=== PATIENT | female | born 1960 | race Caucasian/White ===

== ENCOUNTER → 2022-07-30 | Outpatient (CLI) | payer BC ==
[~2022-07-30] MED LIST: CIPRO500 MG PO; CLONIDINE HCL0.2 MG PO; NIFEDIPINE ER30 M1 PO; NORCO 7.5-3251 EACH PO; OMEPRAZOLE20 M1 PO; ZOFRAN ODT4 MG PO
== END ==
LOC: MAMMO 13:31
PROVIDERS: ATTEND Family Medicine
DX: Z12.31 Encounter for screening mammogram for malignant neoplasm of breast (principal); Z13.820 Encounter for screening for osteoporosis
CPT/HCPCS: 77067; 77080

== ENCOUNTER 2022-08-26 14:42 | Inpatient (IN) | payer BC ==
[~2022-08-26] VITALS: Ht 172.7 cm; Wt 82.6 kg
[2022-08-26] MEDS ORDERED: ONDANSETRON HCL INJ 2MG/ML 2ML 2 MG/ML VIAL IV STA (15:08)
[2022-08-26] MEDS ORDERED: Morphine 4mg INJECTION 4 MG/ML INJ IV ONE (15:15)
[2022-08-26] MEDS ORDERED: SODIUM CHLORIDE 0.9% 1000ML 1,000 ML IV SCH (15:15)
[2022-08-26 15:24] LABS: BASOPHILS # (AUTO) 0.1 (0.0-0.1); BASOPHILS % 0.4 % (0.0-1.0); EOSINOPHILS # (AUTO) 0.1 (0.0-0.4); EOSINOPHILS % 0.8 % (0.0-6.0); HEMATOCRIT 48.1 % (34.2-44.1); HEMOGLOBIN 15.9 g/dL (12.0-16.0); LYMPHOCYTES # (AUTO) 3.3 (1.0-3.2); LYMPHOCYTES % 27.2 % (18.0-39.1); MEAN CORPUSCULAR HEMOGLOBIN 29.9 pg (28-32); MEAN CORPUSCULAR HGB CONC 33.1 g/dL (31-35); MEAN CORPUSCULAR VOLUME 90.4 fL (81-99); MONOCYTES # (AUTO) 0.6 (0.2-0.8); MONOCYTES % 4.6 % (4.4-11.3); NEUTROPHILS % 66.7 % (38.7-80.0); PLATELET COUNT 279 x10e3/uL (140-360); RED BLOOD COUNT 5.32 x10e6/uL (3.6-5.1); RED CELL DISTRIBUTION WIDTH 12.8 % (11.7-14.4)
[2022-08-26 15:36] LABS: CLARITY,URINE SL CLOUDY (CLEAR); COLOR,URINE STRAW (YELLOW)
[2022-08-26 15:37] LABS: KETONES,URINE 1+ (NEGATIVE); LEUKOCYTE ESTERASE ,URINE MODERATE (NEGATIVE); NITRITE,URINE NEGATIVE (NEGATIVE); PROTEIN,URINE DIPSTICK NEGATIVE (NEGATIVE); URINE UROBILINOGEN 0.2 mg/dL (0.2 - 1)
[2022-08-26 15:47] LABS: ALBUMIN 4.5 g/dL (3.5-5.0); ALBUMIN/GLOBULIN RATIO 1.4 (0.8-2.0); ANION GAP 20.2 mmol/L (8-16); CALCIUM 10.1 mg/dL (8.4-10.2); CREATININE, SERUM 0.77 mg/dL (0.57-1.11); POTASSIUM 3.2 mmol/L (3.5-5.1)
[2022-08-26 15:53] LABS: BACTERIA,URINE MODERATE /HPF; EPITHELIAL CELLS,URINE MODERATE /LPF
[2022-08-26] MEDS ORDERED: IOPAMIDOL 370 MG/ML 100 ML INFUS..BTL INJ ONE (16:05)
[2022-08-26] MEDS ORDERED: SODIUM CHLORIDE FLUSH 10 ML SYR INJ PRN (17:45)
[2022-08-26] MEDS ORDERED: Morphine 4mg INJECTION 4 MG/ML INJ IV PRN (17:45)
[2022-08-26] MEDS: SODIUM CHLORIDE 0.9% 1000ML 1,000 ML IV SCH (17:59)
[2022-08-26] MEDS ORDERED: HYDRALAZINE HCL 20 MG/ML VIAL IV PRN (19:00)
[2022-08-26] MEDS ORDERED: ACETAMINOPHEN 1000 MG/100 ML IV PRN (19:00)
[2022-08-27] VITALS (8 sets, daily range): BP systolic 139–156; BP diastolic 61–89
[2022-08-27] MEDS ORDERED: ZETIA10 MG PO (01:27)
[2022-08-27] MEDS ORDERED: HYZAAR 100-12.1 EACH PO (01:27)
[2022-08-27] MEDS ORDERED: ATORVASTATIN CA20 MG PO (01:28)
[2022-08-27] MEDS ORDERED: CLONIDINE HCL0.1 MG PO (01:28)
[2022-08-27] MEDS ORDERED: ASPIRIN EC81 MG PO (01:29)
[2022-08-27] MEDS: SODIUM CHLORIDE 0.9% 1000ML 1,000 ML IV SCH ×3 (01:45→17:10)
[2022-08-27 06:53] LABS: BASOPHILS % 0.3 % (0.0-1.0); EOSINOPHILS # (AUTO) 0.2 (0.0-0.4); HEMATOCRIT 40.9 % (34.2-44.1); HEMOGLOBIN 13.2 g/dL (12.0-16.0); LYMPHOCYTES % 26.9 % (18.0-39.1); MEAN CORPUSCULAR HEMOGLOBIN 29.9 pg (28-32); MEAN CORPUSCULAR HGB CONC 32.3 g/dL (31-35); MEAN CORPUSCULAR VOLUME 92.5 fL (81-99); MONOCYTES # (AUTO) 0.5 (0.2-0.8); MONOCYTES % 6.3 % (4.4-11.3); NEUTROPHILS # (AUTO) 4.9 (2.1-6.9); NEUTROPHILS % 64.4 % (38.7-80.0); PLATELET COUNT 179 x10e3/uL (140-360); RED BLOOD COUNT 4.42 x10e6/uL (3.6-5.1); RED CELL DISTRIBUTION WIDTH 12.8 % (11.7-14.4)
[2022-08-27 07:16] LABS: ANION GAP 10.4 mmol/L (8-16); CALCIUM 8.6 mg/dL (8.4-10.2); CREATININE, SERUM 0.62 mg/dL (0.57-1.11); POTASSIUM 3.4 mmol/L (3.5-5.1)
[2022-08-28] VITALS (10 sets, daily range): BP systolic 135–179; BP diastolic 62–87
[2022-08-28] MEDS: SODIUM CHLORIDE 0.9% 1000ML 1,000 ML IV SCH ×2 (01:26→08:00)
[2022-08-28] MEDS: ONDANSETRON HCL INJ 2MG/ML 2ML 2 MG/ML VIAL IV PRN ×2 (11:34→21:57)
[2022-08-28] MEDS ORDERED: MIDAZOLAM HCL 2 MG/2 ML VIAL ONE (12:25)
[2022-08-28] MEDS ORDERED: FENTANYL CITRATE/PF 100MCG/2 ML INJ ONE (12:25)
[2022-08-28] MEDS ORDERED: DEXAMETHASONE SOD PHOS INJ 4 MG/ML SDV ONE (13:25)
[2022-08-28] MEDS ORDERED: KETOROLAC TROMETHAMINE 30 MG/ML VIAL ONE (13:25)
[2022-08-28] MEDS ORDERED: ONDANSETRON HCL INJ 2MG/ML 2ML 2 MG/ML VIAL ONE ×2 (13:25→18:28)
[2022-08-28] MEDS ORDERED: SEVOFLURANE INHAL SOLN 250 ML PEN BTL ONE (13:25)
[2022-08-28] MEDS ORDERED: POVIDONE IODINE 0.05% 0.05 % ML PO ONE (13:25)
[2022-08-28] MEDS ORDERED: ROCURONIUM BROMIDE 10 MG/ML 5ML VIAL IV ONE (13:25)
[2022-08-28] MEDS ORDERED: NEOSTIGMINE 1 MG/ML 10ML VIAL ONE (13:25)
[2022-08-28] MEDS ORDERED: PROPOFOL IV EMULSION 10 MG/ML 20 ML VIAL ONE (13:25)
[2022-08-28] MEDS ORDERED: GLYCOPYRROLATE INJ 0.2 MG/ML VIAL ONE (13:25)
[2022-08-28] MEDS ORDERED: LIDOCAINE HCL 1% LOCAL INJ 20 ML VIAL ONE (15:49)
[2022-08-28] MEDS ORDERED: HYDROMORPHONE 1MG/1ML INJ ONE (15:49)
[2022-08-28] MEDS ORDERED: NALOXONE HCL INJ 0.4 MG/ML AMP IV PRN (18:00)
[2022-08-28] MEDS ORDERED: HYDROMORPHONE 0.2MG/ML-SOD CHL 30ML PCA SYRINGE IV PRN (18:00)
[2022-08-28] MEDS ORDERED: HYDROMORPHONE 0.2MG/ML-SOD CHL 30ML PCA SYRINGE IV ONE (18:15)
[2022-08-28] MEDS ORDERED: ACETAMINOPHEN 1000 MG/100 ML IV PRN (20:00)
[2022-08-29] VITALS (8 sets, daily range): BP systolic 127–164; BP diastolic 66–93
[2022-08-29] MEDS: SODIUM CHLORIDE 0.9% 1000ML 1,000 ML IV SCH ×4 (04:34→19:24)
[2022-08-29] MEDS: ONDANSETRON HCL INJ 2MG/ML 2ML 2 MG/ML VIAL IV PRN ×2 (04:34→10:48)
[2022-08-29 09:28] LABS: BASOPHILS % 0.1 % (0.0-1.0); HEMATOCRIT 44.8 % (34.2-44.1); LYMPHOCYTES # (AUTO) 1.5 (1.0-3.2); LYMPHOCYTES % 10.1 % (18.0-39.1); MEAN CORPUSCULAR HEMOGLOBIN 29.8 pg (28-32); MEAN CORPUSCULAR HGB CONC 31.3 g/dL (31-35); MEAN CORPUSCULAR VOLUME 95.3 fL (81-99); MONOCYTES # (AUTO) 0.7 (0.2-0.8); MONOCYTES % 4.6 % (4.4-11.3); NEUTROPHILS # (AUTO) 12.6 (2.1-6.9); NEUTROPHILS % 84.8 % (38.7-80.0); PLATELET COUNT 207 x10e3/uL (140-360); RED CELL DISTRIBUTION WIDTH 12.7 % (11.7-14.4)
[2022-08-29 09:49] LABS: ANION GAP 17.9 mmol/L (8-16); CALCIUM 8.7 mg/dL (8.4-10.2); CREATININE, SERUM 0.74 mg/dL (0.57-1.11); POTASSIUM 3.9 mmol/L (3.5-5.1)
[2022-08-29] MEDS ORDERED: HYDROMORPHONE 0.2MG/ML-SOD CHL 30ML PCA SYRINGE IV PRN (11:15)
[2022-08-29] MEDS ORDERED: HYDROCODONE/APAP 7.5MG-325MG 1 EA TAB PO PRN (16:45)
[2022-08-29] MEDS: BISACODYL 10 MG SUPP PR SCH (20:35)
[2022-08-29] MEDS: HYDROMORPHONE 1MG/1ML INJ IV PRN (22:29)
[2022-08-29] MEDS: CALCIUM CARBONATE 500 MG CHEWABLE TABS PO PRN (22:29)
[2022-08-30] VITALS (8 sets, daily range): BP systolic 133–164; BP diastolic 70–87
[2022-08-30] MEDS: HYDROMORPHONE 1MG/1ML INJ IV PRN ×6 (03:30→23:36)
[2022-08-30] MEDS: ONDANSETRON HCL INJ 2MG/ML 2ML 2 MG/ML VIAL IV PRN (05:57)
[2022-08-30 07:03] LABS: BASOPHILS % 0.3 % (0.0-1.0); EOSINOPHILS # (AUTO) 0.1 (0.0-0.4); EOSINOPHILS % 0.8 % (0.0-6.0); HEMATOCRIT 39.7 % (34.2-44.1); HEMOGLOBIN 13.2 g/dL (12.0-16.0); LYMPHOCYTES # (AUTO) 1.4 (1.0-3.2); LYMPHOCYTES % 13.5 % (18.0-39.1); MEAN CORPUSCULAR HEMOGLOBIN 29.7 pg (28-32); MEAN CORPUSCULAR HGB CONC 33.2 g/dL (31-35); MEAN CORPUSCULAR VOLUME 89.4 fL (81-99); MONOCYTES # (AUTO) 0.7 (0.2-0.8); MONOCYTES % 6.3 % (4.4-11.3); NEUTROPHILS # (AUTO) 8.4 (2.1-6.9); NEUTROPHILS % 78.7 % (38.7-80.0); PLATELET COUNT 181 x10e3/uL (140-360); RED BLOOD COUNT 4.44 x10e6/uL (3.6-5.1); RED CELL DISTRIBUTION WIDTH 13.2 % (11.7-14.4)
[2022-08-30 07:23] LABS: ANION GAP 15.4 mmol/L (8-16); CREATININE, SERUM 0.69 mg/dL (0.57-1.11); POTASSIUM 4.4 mmol/L (3.5-5.1)
[2022-08-30] MEDS: BISACODYL 10 MG SUPP PR SCH (08:00)
[2022-08-30] MEDS ORDERED: BISACODYL 10 MG SUPP PR SCH (10:30)
[2022-08-30] MEDS: SODIUM CHLORIDE 0.9% 1000ML 1,000 ML IV SCH (15:24)
[2022-08-30] MEDS: CALCIUM CARBONATE 500 MG CHEWABLE TABS PO PRN (17:33)
[2022-08-31] VITALS: BP 125/88
[2022-08-31] MEDS: SODIUM CHLORIDE 0.9% 1000ML 1,000 ML IV SCH ×2 (00:43→11:28)
[2022-08-31 04:00] VITALS: BP 118/77
[2022-08-31] MEDS: HYDROMORPHONE 1MG/1ML INJ IV PRN (04:58)
[2022-08-31 08:01] VITALS: BP 143/85
[2022-08-31 08:28] VITALS: BP 143/85
[2022-08-31 08:29] VITALS: BP 143/85
[2022-08-31 09:10] LABS: BASOPHILS % 0.2 % (0.0-1.0); EOSINOPHILS # (AUTO) 0.2 (0.0-0.4); EOSINOPHILS % 1.8 % (0.0-6.0); HEMATOCRIT 40.5 % (34.2-44.1); HEMOGLOBIN 13.1 g/dL (12.0-16.0); LYMPHOCYTES # (AUTO) 1.2 (1.0-3.2); LYMPHOCYTES % 13.3 % (18.0-39.1); MEAN CORPUSCULAR HEMOGLOBIN 29.8 pg (28-32); MEAN CORPUSCULAR HGB CONC 32.3 g/dL (31-35); MONOCYTES # (AUTO) 0.5 (0.2-0.8); MONOCYTES % 5.8 % (4.4-11.3); NEUTROPHILS % 78.7 % (38.7-80.0); PLATELET COUNT 170 x10e3/uL (140-360); RED CELL DISTRIBUTION WIDTH 12.9 % (11.7-14.4)
[2022-08-31 09:34] LABS: ANION GAP 17.3 mmol/L (8-16); BLOOD UREA NITROGEN < 5 mg/dL (7-26); CARBON DIOXIDE 20 mmol/L (22-29); CHLORIDE 107 mmol/L (98-107); CREATININE, SERUM 0.62 mg/dL (0.57-1.11); GLUCOSE 142 mg/dL (74-118); POTASSIUM 3.3 mmol/L (3.5-5.1); SODIUM 141 mmol/L (136-145)
[2022-08-31] MEDS: ONDANSETRON HCL INJ 2MG/ML 2ML 2 MG/ML VIAL IV PRN (09:34)
[2022-08-31 09:43] LABS: BUN/CREATININE RATIO 8 (6-25)
[2022-08-31 12:10] VITALS: BP 145/80
== END 2022-08-31 15:30 | disposition home or self-care (01) | DRG 355 ==
LOC: ER 14:49 → ERHOLD 17:39 → MED/SURG 08-27 00:25
PROVIDERS: ADMIT Family Medicine; ATTEND Family Medicine
PROC: 0WUF0JZ Supplement Abdominal Wall with Synthetic Substitute, Open Approach (ICD-10-PCS; principal; 2022-08-28 15:39)
DX: K43.6 Other and unspecified ventral hernia with obstruction, without gangrene (principal); I10 Essential (primary) hypertension; N20.0 Calculus of kidney; Z20.822 Contact with and (suspected) exposure to COVID-19; I73.9 Peripheral vascular disease, unspecified; K57.90 Diverticulosis of intestine, part unspecified, without perforation or abscess without bleeding; F17.200 Nicotine dependence, unspecified, uncomplicated
CPT/HCPCS: 36415; 74177; 80048; 80053; 81001; 83690; 85025; 93005; 94799; 99284; C1781; J0690; J1100; J1170; J1885; J2001; J2250; J2270; J2405; J2710; J3010; J7030; Q9967

== ENCOUNTER → 2022-09-17 | Outpatient (CLI) | payer BC ==
[~2022-09-17] MED LIST changes: +ASPIRIN EC81 MG PO; +ATORVASTATIN CA20 MG PO; +CLONIDINE HCL0.1 MG PO; +HYZAAR 100-12.1 EACH PO; +ZETIA10 MG PO
== END ==
LOC: MAMMO 11:59
PROVIDERS: ATTEND Family Medicine
DX: N60.01 Solitary cyst of right breast (principal); R92.2 Inconclusive mammogram

== ENCOUNTER 2024-03-12 16:58 | Inpatient (IN) | payer MEDICARE ==
[~2024-03-12] VITALS: Ht 172.7 cm; Wt 79.4 kg
[~2024-03-12 16:58] MED LIST changes: +CEFDINIR300 MG PO; +DICYCLOMINE HCL20 MG PO; +METRONIDAZOLE500 MG PO; +ONDANSETRON ODT4 MG SL
[2024-03-12 17:26] LABS: BASOPHILS % 0.1 % (0.0-1.0); EOSINOPHILS # (AUTO) 0.1 (0.0-0.4); EOSINOPHILS % 0.7 % (0.0-6.0); HEMATOCRIT 41.6 % (34.2-44.1); HEMOGLOBIN 14.5 g/dL (12.0-16.0); LYMPHOCYTES # (AUTO) 1.4 (1.0-3.2); LYMPHOCYTES % 10.1 % (18.0-39.1); MEAN CORPUSCULAR HEMOGLOBIN 29.8 pg (28-32); MEAN CORPUSCULAR HGB CONC 34.9 g/dL (31-35); MEAN CORPUSCULAR VOLUME 85.4 fL (81-99); MONOCYTES # (AUTO) 0.8 (0.2-0.8); NEUTROPHILS # (AUTO) 11.2 (2.1-6.9); NEUTROPHILS % 82.8 % (38.7-80.0); PLATELET COUNT 197 x10e3/uL (140-360); RED BLOOD COUNT 4.87 x10e6/uL (3.6-5.1); RED CELL DISTRIBUTION WIDTH 13.3 % (11.7-14.4); WHITE BLOOD COUNT 13.52 x10e3/uL (4.8-10.8)
[2024-03-12] MEDS ORDERED: ONDANSETRON HCL INJ 2MG/ML 2ML 2 MG/ML VIAL IV PRN (17:30)
[2024-03-12 17:32] LABS: INR 0.98; PROTHROMBIN TIME 13.7 seconds (11.9-14.5)
[2024-03-12 17:33] LABS: PARTIAL THROMBOPLASTIN TIME 26.8 seconds (23.8-35.5)
[2024-03-12] MEDS ORDERED: Morphine 4mg INJECTION 4 MG/ML INJ ONE (17:39)
[2024-03-12 17:41] LABS: ALBUMIN 3.8 g/dL (3.5-5.0); ALBUMIN/GLOBULIN RATIO 1.1 (0.8-2.0); ANION GAP 16.2 mmol/L (8-16); BILIRUBIN,TOTAL 0.9 mg/dL (0.2-1.2); CALCIUM 9.5 mg/dL (8.4-10.2); CREATININE, SERUM 0.76 mg/dL (0.57-1.11); TOTAL PROTEIN 7.3 g/dL (6.5-8.1)
[2024-03-12] MEDS ORDERED: ONDANSETRON HCL INJ 2MG/ML 2ML 2 MG/ML VIAL ONE (17:41)
[2024-03-12] MEDS ORDERED: METRONIDAZOLE 500MG/NS 100ML 100 ML IV ONE (17:41)
[2024-03-12] MEDS ORDERED: PIPERACILLIN/TAZOBACTAM 3.375 GM VIAL ONE (17:42)
[2024-03-12 17:43] LABS: POTASSIUM 3.2 mmol/L (3.5-5.1)
[2024-03-12] MEDS: METRONIDAZOLE 500MG/NS 100ML 100 ML IV SCH (17:43)
[2024-03-12] MEDS: ONDANSETRON HCL INJ 2MG/ML 2ML 2 MG/ML VIAL IV STA (17:44)
[2024-03-12] MEDS: Morphine 4mg INJECTION 4 MG/ML INJ IV STA (17:44)
[2024-03-12] MEDS: SODIUM CHLORIDE 0.9% 1000ML 1,000 ML IV SCH (17:51)
[2024-03-12] MEDS ORDERED: SODIUM CHLORIDE 0.9% 1000ML 1,000 ML ONE (17:52)
[2024-03-12 20:00] VITALS: BP 113/70; PULSE 70; RESP 18; TEMP 98.6; O2SAT 100
[2024-03-12 22:00] VITALS: BP 113/70; PULSE 70; RESP 18; TEMP 98.6; O2SAT 100
[2024-03-13] VITALS (8 sets, daily range): BP systolic 102–118; BP diastolic 60–71; PULSE 63–70; RESP 17–18; TEMP 97.9–99.1; O2SAT 95–98
[2024-03-13 02:57] LABS: TROPONIN I 0.004 ng/mL (0-0.300)
[2024-03-13 05:41] LABS: BASOPHILS % 0.1 % (0.0-1.0); EOSINOPHILS # (AUTO) 0.2 (0.0-0.4); EOSINOPHILS % 1.4 % (0.0-6.0); HEMATOCRIT 36.5 % (34.2-44.1); HEMOGLOBIN 12.2 g/dL (12.0-16.0); LYMPHOCYTES # (AUTO) 1.3 (1.0-3.2); LYMPHOCYTES % 11.6 % (18.0-39.1); MEAN CORPUSCULAR HEMOGLOBIN 29.3 pg (28-32); MEAN CORPUSCULAR HGB CONC 33.4 g/dL (31-35); MEAN CORPUSCULAR VOLUME 87.7 fL (81-99); MONOCYTES # (AUTO) 0.9 (0.2-0.8); MONOCYTES % 8.1 % (4.4-11.3); NEUTROPHILS # (AUTO) 8.8 (2.1-6.9); NEUTROPHILS % 78.3 % (38.7-80.0); PLATELET COUNT 153 x10e3/uL (140-360); RED BLOOD COUNT 4.16 x10e6/uL (3.6-5.1); RED CELL DISTRIBUTION WIDTH 13.3 % (11.7-14.4); WHITE BLOOD COUNT 11.24 x10e3/uL (4.8-10.8)
[2024-03-13 06:27] LABS: ALBUMIN 2.9 g/dL (3.5-5.0); ANION GAP 12.8 mmol/L (8-16); BILIRUBIN,TOTAL 0.8 mg/dL (0.2-1.2); CALCIUM 8.4 mg/dL (8.4-10.2); CREATININE, SERUM 0.7 mg/dL (0.57-1.11); TOTAL PROTEIN 5.7 g/dL (6.5-8.1)
[2024-03-13 06:41] LABS: POTASSIUM 2.8 mmol/L (3.5-5.1)
[2024-03-13] MEDS ORDERED: CEFDINIR 300 MG CAP PO SCH (09:00)
[2024-03-13] MEDS: HYDROCHLOROTHIAZIDE 25 MG TAB PO SCH (09:00)
[2024-03-13] MEDS: CLONIDINE HCL 0.1 MG TAB PO SCH (09:00)
[2024-03-13] MEDS: ASPIRIN 81 MG ENTERIC COATED PO SCH (09:00)
[2024-03-13] MEDS: LOSARTAN POTASSIUM 100 MG TAB PO SCH (09:00)
[2024-03-13] MEDS: EZETIMIBE 10 MG TAB PO SCH (09:00)
[2024-03-13] MEDS ORDERED: LOSARTAN POTASSIUM 100 MG TAB ONE (10:02)
[2024-03-13] MEDS ORDERED: EZETIMIBE 10 MG TAB ONE (10:02)
[2024-03-13] MEDS ORDERED: METRONIDAZOLE 500MG/NS 100ML IV ONE ×2 (10:02→19:38)
[2024-03-13] MEDS ORDERED: Morphine 4mg INJECTION 4 MG/ML INJ ONE ×2 (10:02→19:38)
[2024-03-13] MEDS ORDERED: POTASSIUM CHLORIDE 20 MEQ TAB CR PO ONE (10:02)
[2024-03-13] MEDS ORDERED: ASPIRIN 81 MG ENTERIC COATED PO ONE (10:02)
[2024-03-13] MEDS ORDERED: CLONIDINE HCL 0.1 MG TAB ONE (10:02)
[2024-03-13] MEDS ORDERED: HYDROCHLOROTHIAZIDE 25 MG TAB ONE (10:02)
[2024-03-13] MEDS ORDERED: POTASSIUM CHLORIDE 20MEQ/100ML IVPB ONE (10:02)
[2024-03-13] MEDS ORDERED: Sodium Chloride 0.9% 50ML Bag ONE ×2 (10:02→19:38)
[2024-03-13] MEDS ORDERED: PIPERACILLIN/TAZOBACTAM 3.375 GM VIAL ONE ×2 (10:02→19:38)
[2024-03-13] MEDS: POTASSIUM CHLORIDE 20 MEQ TAB CR PO ONE (11:22)
[2024-03-13] MEDS: POTASSIUM CHLORIDE 20MEQ/100ML 100 ML IV SCH (11:25)
[2024-03-13] MEDS: Morphine 4mg INJECTION 4 MG/ML INJ IV PRN (12:00)
[2024-03-13 16:56] LABS: TROPONIN I 0.003 ng/mL (0-0.300)
[2024-03-13] MEDS ORDERED: ONDANSETRON HCL INJ 2MG/ML 2ML 2 MG/ML VIAL ONE (19:38)
[2024-03-13] MEDS ORDERED: SODIUM CHLORIDE 0.9% 1000 ML BAG ONE (19:38)
[2024-03-13] MEDS: ATORVASTATIN 20 MG TAB PO SCH (21:15)
[2024-03-13] MEDS: POTASSIUM CHLORIDE 10MEQ EA PO ONE (21:39)
[2024-03-13] MEDS: ONDANSETRON HCL 4 MG ORAL DISINTEGRATING TAB SL PRN (21:41)
[2024-03-14] VITALS (7 sets, daily range): BP systolic 108–155; BP diastolic 60–81; PULSE 64–70; RESP 17–20; TEMP 97.4–98.6; O2SAT 95–100
[2024-03-14] MEDS: DICYCLOMINE HCL 20 MG TAB PO PRN (02:46)
[2024-03-14 06:37] LABS: ANION GAP 13.5 mmol/L (8-16); CALCIUM 8.4 mg/dL (8.4-10.2); CREATININE, SERUM 0.65 mg/dL (0.57-1.11); POTASSIUM 3.5 mmol/L (3.5-5.1)
[2024-03-14 07:17] LABS: CREATINE KINASE 32 IU/L (29-168)
[2024-03-14 07:56] LABS: TROPONIN I < 0.001 ng/mL (0-0.300)
[2024-03-14] MEDS ORDERED: ATORVASTATIN 20 MG TAB ONE (22:00)
[2024-03-14] MEDS ORDERED: ONDANSETRON HCL 4 MG ORAL DISINTEGRATING TAB ONE (22:00)
[2024-03-14] MEDS ORDERED: SODIUM CHLORIDE 0.9% 1000 ML BAG ONE (22:00)
[2024-03-15] VITALS: BP 171/87; PULSE 76; RESP 20; TEMP 98; O2SAT 99
[2024-03-15 04:00] VITALS: BP 147/86; PULSE 75; RESP 20; TEMP 97.8; O2SAT 97
[2024-03-15] MEDS ORDERED: SODIUM CHLORIDE 0.9% 1000 ML BAG ONE (04:00)
[2024-03-15] MEDS ORDERED: EZETIMIBE 10 MG TAB ONE (04:00)
[2024-03-15] MEDS ORDERED: METRONIDAZOLE 500MG/NS 100ML IV ONE ×2 (04:00)
[2024-03-15] MEDS ORDERED: Morphine 4mg INJECTION 4 MG/ML INJ ONE (04:00)
[2024-03-15] MEDS ORDERED: Sodium Chloride 0.9% 50ML Bag ONE (04:00)
[2024-03-15] MEDS ORDERED: PIPERACILLIN/TAZOBACTAM 3.375 GM VIAL ONE ×3 (04:00→17:50)
[2024-03-15] MEDS ORDERED: CLONIDINE HCL 0.1 MG TAB ONE (04:00)
[2024-03-15] MEDS ORDERED: ONDANSETRON HCL INJ 2MG/ML 2ML 2 MG/ML VIAL ONE (04:00)
[2024-03-15] MEDS ORDERED: ASPIRIN 81 MG ENTERIC COATED PO ONE (04:00)
[2024-03-15] MEDS ORDERED: ONDANSETRON HCL 4 MG ORAL DISINTEGRATING TAB ONE (04:00)
[2024-03-15] MEDS ORDERED: HYDROCHLOROTHIAZIDE 25 MG TAB ONE (04:00)
[2024-03-15 08:53] VITALS: BP 149/75; PULSE 74; RESP 18; TEMP 97.7; O2SAT 98
[2024-03-15 09:00] VITALS: BP 149/75; PULSE 74; RESP 18; TEMP 97.7; O2SAT 98
[2024-03-15] MEDS: ONDANSETRON HCL INJ 2MG/ML 2ML 2 MG/ML VIAL IV PRN (09:51)
[2024-03-15] MEDS ORDERED: SODIUM CHLORIDE 0.9% 1000ML 1,000 ML ONE (11:33)
[2024-03-15 11:59] VITALS: BP 134/70; PULSE 71; RESP 18; TEMP 98.7; O2SAT 96
[2024-03-15] MEDS ORDERED: POTASSIUM CHLORIDE 10MEQ EA ONE (12:53)
[2024-03-15] MEDS ORDERED: METRONIDAZOLE 500MG/NS 100ML 0 ML IV ONE (12:53)
[2024-03-15 16:22] VITALS: BP 117/77; PULSE 73; RESP 18; TEMP 97.7; O2SAT 99
[2024-03-15] MEDS ORDERED: METRONIDAZOLE 500MG/NS 100ML 100 ML IV ONE (17:50)
== END 2024-03-15 18:53 | disposition home or self-care (01) | DRG 392 ==
LOC: ER 17:10 → ERHOLD 17:23 → MED/SURG3 18:30
PROVIDERS: ADMIT Family Medicine; ATTEND Family Medicine
DX: K57.32 Diverticulitis of large intestine without perforation or abscess without bleeding (principal); N39.0 Urinary tract infection, site not specified; K52.9 Noninfective gastroenteritis and colitis, unspecified; I25.10 Atherosclerotic heart disease of native coronary artery without angina pectoris; I10 Essential (primary) hypertension; E78.5 Hyperlipidemia, unspecified; Z11.52 Encounter for screening for COVID-19; Z79.82 Long term (current) use of aspirin; I73.9 Peripheral vascular disease, unspecified; Z95.820 Peripheral vascular angioplasty status with implants and grafts; F17.290 Nicotine dependence, other tobacco product, uncomplicated; E87.6 Hypokalemia; R53.81 Other malaise
CPT/HCPCS: 36415; 80048; 80053; 82550; 84484; 85025; 85610; 85730; 94760; 99284; J2270; J2405; J2543; J3480; J7030; Q0162; U0002

== ENCOUNTER 2025-08-16 10:10 | Inpatient (IN) | payer MEDICARE ==
[~2025-08-16] VITALS: Ht 172.7 cm; Wt 81.2 kg
[2025-08-16 10:18] VITALS: TEMP 97.7
[2025-08-16] MEDS: SODIUM CHLORIDE 0.9% 1000ML 1,000 ML IV STA (11:01)
[2025-08-16] MEDS: Morphine 4mg INJECTION 4 MG/ML INJ IV STA (11:07)
[2025-08-16] MEDS: ONDANSETRON HCL INJ 2MG/ML 2ML 2 MG/ML VIAL IV STA (11:07)
[2025-08-16 11:20] LABS: BASOPHILS % 0.2 % (0.0-1.0); EOSINOPHILS % 1.7 % (0.0-6.0); LYMPHOCYTES % 12.8 % (18.0-39.1); MONOCYTES % 7.1 % (4.4-11.3); NEUTROPHILS % 77.9 % (38.7-80.0); RED CELL DISTRIBUTION WIDTH 13.2 % (11.7-14.4)
[2025-08-16 11:30] LABS: LEUKOCYTE ESTERASE ,URINE NEGATIVE (NEGATIVE); PROTEIN,URINE DIPSTICK NEGATIVE (NEGATIVE); URINE UROBILINOGEN 0.2 mg/dL (0.2 - 1)
[2025-08-16 11:38] LABS: INR 1.0
[2025-08-16 11:49] LABS: EST GLOMERULAR FILTRATION RATE 88.0 ML/MIN (>=60)
[2025-08-16 11:50] LABS: EPITHELIAL CELLS,URINE MODERATE /LPF; WBC,URINE (MAN) 0-5 /HPF (0-5)
[2025-08-16] MEDS ORDERED: SODIUM CHLORIDE 0.9% 100 ML ONE (11:57)
[2025-08-16] MEDS ORDERED: IOPAMIDOL 370 MG/ML 100 ML INFUS..BTL INJ ONE (11:57)
[2025-08-16] MEDS: SODIUM CHLORIDE 0.9% 1000ML 1,000 ML IV SCH (13:57)
[2025-08-16 14:00] VITALS: PULSE 69; RESP 16
[2025-08-16] MEDS: METRONIDAZOLE 500MG/NS 100ML 100 ML IV SCH ×2 (14:37→23:29)
[2025-08-16 17:14] VITALS: BP 113/98; PULSE 67; RESP 16; TEMP 98.6; O2SAT 100
[2025-08-16 17:16] VITALS: BP 113/98; PULSE 67; RESP 16; TEMP 98.6; O2SAT 100
[2025-08-16 20:00] VITALS: BP 109/60; PULSE 64; RESP 16; TEMP 99.7; O2SAT 98
[2025-08-16 20:45] VITALS: PULSE 68; RESP 16; O2SAT 98
[2025-08-16] MEDS: LOSARTAN POTASSIUM 100 MG TAB PO SCH (21:00)
[2025-08-16] MEDS: CRESTOR 10MG PO SCH (23:26)
[2025-08-17] VITALS (9 sets, daily range): BP systolic 110–159; BP diastolic 63–98; PULSE 63–107; RESP 16; TEMP 97.7–99.3; O2SAT 94–100
[2025-08-17 05:39] LABS: BASOPHILS % 0.3 % (0.0-1.0); EOSINOPHILS % 3.5 % (0.0-6.0); LYMPHOCYTES % 20.3 % (18.0-39.1); MONOCYTES % 9.5 % (4.4-11.3); NEUTROPHILS % 66.3 % (38.7-80.0); RED CELL DISTRIBUTION WIDTH 13.5 % (11.7-14.4)
[2025-08-17 06:05] LABS: EST GLOMERULAR FILTRATION RATE 86.0 ML/MIN (>=60)
[2025-08-17] MEDS: PANTOPRAZOLE SOD 40 MG TABEC PO SCH (09:31)
[2025-08-17] MEDS: ONDANSETRON HCL INJ 2MG/ML 2ML 2 MG/ML VIAL IV PRN (10:52)
[2025-08-17] MEDS: Morphine 4mg INJECTION 4 MG/ML INJ IV PRN (10:52)
[2025-08-18] VITALS (10 sets, daily range): BP systolic 119–181; BP diastolic 63–89; PULSE 56–68; RESP 16–20; TEMP 97.7–98.6; O2SAT 95–100
[2025-08-18] MEDS: ACETAMINOPHEN 325 MG TAB PO PRN (02:49)
[2025-08-18 05:45] LABS: BASOPHILS % 0.4 % (0.0-1.0); EOSINOPHILS % 3.8 % (0.0-6.0); LYMPHOCYTES % 21.2 % (18.0-39.1); MONOCYTES % 8.1 % (4.4-11.3); NEUTROPHILS % 66.3 % (38.7-80.0); RED CELL DISTRIBUTION WIDTH 13.0 % (11.7-14.4)
[2025-08-18 06:21] LABS: EST GLOMERULAR FILTRATION RATE 97 ML/MIN (>=60)
[2025-08-18] MEDS: KETOROLAC TROMETHAMINE 30 MG/ML VIAL IV PRN (12:48)
[2025-08-18] MEDS ORDERED: HYDROMORPHONE 1MG/1ML INJ IV PRN (14:15)
[2025-08-19] VITALS (8 sets, daily range): BP systolic 130–182; BP diastolic 79–89; PULSE 61–87; RESP 16–19; TEMP 97.7–98.6; O2SAT 64–100
[2025-08-19] MEDS ORDERED: HYDRALAZINE HCL 10 MG TAB PO PRN (16:00)
[2025-08-19] MEDS: HYDRALAZINE HCL 20 MG/ML VIAL IV PRN (18:24)
[2025-08-19] MEDS: CLONIDINE HCL 0.1 MG TAB PO SCH (20:13)
[2025-08-19] MEDS: DIPHENHYDRAMINE HCL INJ 50 MG/ML VIAL IV ONE (20:51)
[2025-08-20] VITALS (7 sets, daily range): BP systolic 133–178; BP diastolic 71–88; PULSE 65–74; RESP 18; TEMP 97.8–98.7; O2SAT 98–100
[2025-08-20 05:07] LABS: BASOPHILS % 0.2 % (0.0-1.0); EOSINOPHILS % 2.2 % (0.0-6.0); LYMPHOCYTES % 20.9 % (18.0-39.1); MONOCYTES % 7.8 % (4.4-11.3); NEUTROPHILS % 68.6 % (38.7-80.0); RED CELL DISTRIBUTION WIDTH 13.2 % (11.7-14.4)
[2025-08-20 05:28] LABS: EST GLOMERULAR FILTRATION RATE 98.0 ML/MIN (>=60)
[2025-08-20] MEDS ORDERED: CLONIDINE HCL 0.1 MG TAB PO PRN (12:45)
[2025-08-20] MEDS: AMLODIPINE BESYLATE 5 MG TAB PO ONE (13:39)
== END 2025-08-20 19:00 | disposition home or self-care (01) | DRG 392 ==
LOC: ER 10:29 → ERHOLD 13:38 → MED/SURG 14:45
PROVIDERS: ADMIT Family Medicine; ATTEND Family Medicine
DX: K57.32 Diverticulitis of large intestine without perforation or abscess without bleeding (principal); E78.5 Hyperlipidemia, unspecified; I10 Essential (primary) hypertension; I25.10 Atherosclerotic heart disease of native coronary artery without angina pectoris; I73.9 Peripheral vascular disease, unspecified; Z79.82 Long term (current) use of aspirin; Z98.62 Peripheral vascular angioplasty status; Z98.1 Arthrodesis status; F17.200 Nicotine dependence, unspecified, uncomplicated; Z82.49 Family history of ischemic heart disease and other diseases of the circulatory system
CPT/HCPCS: 36415; 71045; 74174; 80053; 81001; 83690; 83735; 84484; 85025; 85610; 85730; 93005; 94799; 99284; J0360; J1200; J1885; J2270; J2405; J2470; J2543; J7030; J7050; Q9967